=== PATIENT | male | born 1935 | race Caucasian/White ===

== ENCOUNTER 2024-02-14 09:39 | Emergency (ER) | payer OTHER ==
[~2024-02-14] VITALS: Ht 185.4 cm; Wt 61.5 kg
[2024-02-14] MEDS ORDERED: NS 1,000 ML IV ONE (10:30)
[2024-02-14 10:39] LABS: BASO # 0.04 K/mm3 (0.02-0.10); EOS # 0.05 K/mm3 (0.04-0.40); EOS % 0.6 % (0.0-4.0); HEMATOCRIT 39.5 % (42.0-52.0); HEMOGLOBIN 13.2 g/dL (13.5-18.0); LYMPH# 2.04 K/mm3 (1.50-4.00); MEAN CELL VOLUME 95 fl (78-100); MEAN CORPUSCULAR HEMOGLOBIN 32 pg (27-31); MEAN CORPUSCULAR HGB CONC 33 g/dL (33-37); MEAN PLATELET VOLUME 9.8 fl (7.4-10.4); MONO # 0.86 K/mm3 (0.20-0.80); NEU # 5.56 K/mm3 (1.40-6.50); PLATELET COUNT 251 K/mm3 (130-400); RED BLOOD COUNT 4.14 M/mm3 (4.20-5.60); RED CELL DISTRIBUTION WIDTH 13.7 % (11.5-14.5); WHITE BLOOD COUNT 8.6 K/mm3 (4.8-10.8)
[2024-02-14 10:50] LABS: ALBUMIN 3.7 g/dL (3.4-4.8)
[2024-02-14 10:53] LABS: TOTAL PROTEIN 6.5 g/dL (6.2-8.1)
[2024-02-14 10:54] LABS: TOTAL BILIRUBIN 0.5 mg/dL (0.2-1.2)
[2024-02-14] MEDS ORDERED: Iohexol 300 - 100 ML VIAL IV ONE (11:09)
[2024-02-14] MEDS ORDERED: Piperacillin/Tazobactam Sodium 3.375 GM in NS 100 ML IV ONE (12:00)
[2024-02-14] MEDS ORDERED: AMOXICILLIN AND1 TA2 PO (12:02)
[2024-02-14 12:50] VITALS: BP 154/91
== END 2024-02-14 12:57 | disposition home or self-care (01) ==
LOC: ED 09:39
PROVIDERS: Family Medicine
DX: K57.33 Diverticulitis of large intestine without perforation or abscess with bleeding (principal); D67 Hereditary factor IX deficiency
CPT/HCPCS: J2543; J7030; Q9967

== ENCOUNTER → 2024-04-01 | Outpatient (CLI) | payer MEDICARE, BC ==
[~2024-04-01] MED LIST: AMOXICILLIN AND1 TA2 PO
[2024-04-01 13:58] LABS: BASO # 0.04 K/mm3 (0.02-0.10); EOS # 0.06 K/mm3 (0.04-0.40); EOS % 1.2 % (0.0-4.0); HEMATOCRIT 38.9 % (42.0-52.0); HEMOGLOBIN 12.3 g/dL (13.5-18.0); MEAN CELL VOLUME 98 fl (78-100); MEAN CORPUSCULAR HEMOGLOBIN 31 pg (27-31); MEAN CORPUSCULAR HGB CONC 32 g/dL (33-37); MEAN PLATELET VOLUME 9.9 fl (7.4-10.4); MONO # 0.46 K/mm3 (0.20-0.80); PLATELET COUNT 293 K/mm3 (130-400); RED BLOOD COUNT 3.99 M/mm3 (4.20-5.60); RED CELL DISTRIBUTION WIDTH 13.9 % (11.5-14.5); WHITE BLOOD COUNT 5.2 K/mm3 (4.8-10.8)
== END ==
LOC: LAB 13:31
PROVIDERS: Family Medicine
DX: D64.9 Anemia, unspecified (principal)